=== PATIENT | female | born 1975 | race Caucasian/White ===

== ENCOUNTER 2019-08-10 22:21 | Emergency (ER) | payer BC ==
[~2019-08-10] VITALS: Ht 165.1 cm; Wt 79.4 kg
[~2019-08-10 22:21] MED LIST: ALBU90OI INH; AZIT250 PO; CODACE30 PO; CYCL10 PO; HYDACE5 PO; IBUP400 PO; IBUP800 PO; NAPR500 PO; OXYACE5T PO; PRED20 PO
== END 2019-08-10 23:41 | disposition home or self-care (01) ==
LOC: ER 22:21
DX: S61.312A Laceration without foreign body of right middle finger with damage to nail, initial encounter (principal); S60.410A Abrasion of right index finger, initial encounter; S60.414A Abrasion of right ring finger, initial encounter; F17.200 Nicotine dependence, unspecified, uncomplicated; Z88.5 Allergy status to narcotic agent; W29.2XXA Contact with other powered household machinery, initial encounter
CPT/HCPCS: 99282

== ENCOUNTER 2021-12-22 11:39 | Emergency (ER) | payer BC ==
[~2021-12-22] VITALS: Ht 167.6 cm; Wt 79.4 kg
[2021-12-22] MEDS ORDERED: Bactrim Ds Tab1 EACH PO (12:20)
[2021-12-22] MEDS ORDERED: CEPH500 PO (12:20)
== END 2021-12-22 13:04 | disposition home or self-care (01) ==
LOC: ER 11:39
DX: K11.20 Sialoadenitis, unspecified (principal); F17.210 Nicotine dependence, cigarettes, uncomplicated
CPT/HCPCS: 99283; A9270

== ENCOUNTER → 2024-04-09 | Outpatient (CLI) | payer BC ==
[~2024-04-09] MED LIST changes: +Bactrim Ds Tab1 EACH PO; +CEPH500 PO
[2024-04-15 05:31] LABS: HPV HIGH RISK BY TMA Not Detected; HPV SOURCE Cervical
== END ==
LOC: LAB 10:20 → LAB SHORT 10:20
PROVIDERS: Family Medicine
DX: Z01.419 Encounter for gynecological examination (general) (routine) without abnormal findings (principal)
CPT/HCPCS: 87624; G0123